=== PATIENT | female | born 1990 | race Caucasian/White ===

== ENCOUNTER 2023-05-16 03:25 | Emergency (ER) | payer OTHER, SELFPAY ==
[2023-05-16] VITALS (17 sets, daily range): BP systolic 77–125; BP diastolic 48–100; PULSE 60–93; RESP 12–31; TEMP 37.1; O2SAT 86–99; BMI 29.3
--- NOTE | 2023-05-16 03:49 | ED.CHESTPAI1 ---
HPI - Chest Pain General Chief Complaint: Chest Pain Stated Complaint: CHEST PAIN Time Seen by Provider: 05/16/23 03:45 Source: patient Mode of arrival: Wheelchair Limitations: no limitations History of Present Illness HPI narrative: patient states she is under increased stress. She takes Adderall, Seroquel and Neurontin daily. Presents complaining of chest pain that started about 1.5 hours ago. No dyspnea,nausea or vomiting MD complaint: Reports chest pain Related Data Home Medications Medication Instructions Recorded Confirmed dextroamphetamine-amphetamine 30 05/16/23 mg tablet gabapentin 800 mg tablet mg 05/16/23 Allergies Allergy/AdvReac Type Severity Reaction Status Date / Time acetaminophen [From Tylenol] Allergy Mild Rash Verified 05/16/23 03:32 haloperidol [From Haldol] Allergy Unknown Verified 05/16/23 03:32 Review of Systems ROS Status of ROS 10 or more systems reviewed and unremarkable except as noted in history and below PFSH PFS Social History Smoking status: Current every day smoker Exam Constitutional Vital Signs, click to edit/add: Last Vital Signs Temp 98.8 F 05/16/23 03:28 Pulse 60 05/16/23 03:28 Resp 18 05/16/23 03:28 BP 125/100 H 05/16/23 03:28 Pulse Ox 98 05/16/23 03:28 O2 Del Method Room Air 05/16/23 03:28 Common normals: no apparent distress, average body habitus, oriented x3, no limitations, healthy appearing, alert and well nourished General appearance: anxious Eye Common normals: EOMs intact bilaterally and conjunctivae normal Chest Common normals: inspection of chest normal and palpation of chest normal Respiratory Common normals: normal respiratory effort, no retractions, no use of accessory muscles and clear to auscultation bilaterally GI Common normals: Normal to inspection, nondistended, normoactive bowel sounds present, soft to palpation and non-tender Extremity Common normals: full ROM Other: partial amputation right foot Neuro Common normals: oriented x3, CN's II-XII intact bilaterally, moves all extremities, no focal motor deficits and no sensory deficits noted Psych Mood and affect: anxious Course Vital Signs Vital signs: Vital Signs Temperature 98.8 F 05/16/23 03:28 Pulse Rate 60 05/16/23 03:28 Respiratory Rate 18 05/16/23 03:28 Blood Pressure 125/100 H 05/16/23 03:28 Pulse Oximetry 98 05/16/23 03:28 Oxygen Delivery Method Room Air 05/16/23 03:28 Temperature 98.8 F 05/16/23 03:28 Pulse Rate 60 05/16/23 03:28 Respiratory Rate 18 05/16/23 03:28 Blood Pressure 125/100 H 05/16/23 03:28 Pulse Oximetry 98 05/16/23 03:28 Oxygen Delivery Method Room Air 05/16/23 03:28 MDM - Chest Pain MDM Narrative Medical decision making narrative: patient presents anxious complaining of chest pain. Required Ativan to get her to calm down. EKG with poor R wave progression precordial leads but otherwise normal. Troponin not detectable. Urine drug screen positive for amphetamines. Patient is now resting comfortably and will be discharged to follow up with her family. cxray is clear. Discharged in stable condition Lab Data Labs: Lab Results 05/16/23 05/16/23 05/16/23 Range/Units 03:35 03:38 04:10 WBC 7.4 (4.0-11.0) 10^3/uL RBC 4.10 L (4.20-5.40) 10^6/uL Hgb 13.1 (12.0-16.0) g/dL Hct 38.6 (36.0-48.0) % MCV 94.1 (81.0-99.0) fL MCH 32.0 (26.7-34.0) pg MCHC 33.9 (29.9-35.2) g/dL RDW 12.6 (11.0-15.0) % Plt Count 223 (150-450) 10^3/uL MPV 10.2 (9.5-13.5) fL Neut % (Auto) 55.6 (43.0-75.0) % Lymph % (Auto) 32.9 (20.5-60.0) % [place] % (Auto) 6.4 (1.7-12.0) % Eos % (Auto) 4.4 (0.9-7.0) % Baso % (Auto) 0.4 (0.2-2.0) % Neut # (Auto) 4.1 (1.4-6.5) 10^3/uL Lymph # (Auto) 2.4 (1.2-3.8) 10^3/uL [place] # (Auto) 0.5 (0.3-0.8) 10^3/uL Eos # (Auto) 0.3 (0.0-0.7) 10^3/uL Baso # (Auto) 0.0 (0.0-0.1) 10^3/uL Abs Immat Gran (auto) 0.02 (0.00-0.03) 10^3/uL Imm/Tot Granulo (auto) 0.3 (0.0-0.5) % Sodium 141 (136-145) mmol/L Potassium 3.9 (3.5-5.1) mmol/L Chloride 107 (98-107) mmol/L Carbon Dioxide 28.6 (21.0-32.0) mmol/L Anion Gap 9.3 BUN 18.0 (7.0-18.0) mg/dL Creatinine 0.66 (0.55-1.02) mg/dL Est GFR ( Amer) >60 (>=60) Est GFR (Non-Af Amer) >60 (>=60) BUN/Creatinine Ratio 27.3 Glucose 97 (74-106) mg/dL Calcium 9.0 (8.5-10.1) mg/dL Troponin I High Sens <4.0 L (4.0-51.3) pg/mL Urine Opiates Screen Negative (NEGATIVE) Ur Buprenorphine Scrn Negative (NEGATIVE) Ur Oxycodone Screen Negative (NEGATIVE) Urine Methadone Screen Negative (NEGATIVE) Ur Propoxyphene Screen Negative (NEGATIVE) Ur Barbiturates Screen Negative (NEGATIVE) U Tricyclic Antidepress Negative (NEGATIVE) Ur Phencyclidine Scrn Negative (NEGATIVE) Ur Amphetamines Screen Positive A (NEGATIVE) U Methamphetamines Scrn Negative (NEGATIVE) U Benzodiazepines Scrn Negative (NEGATIVE) Urine Cocaine Screen Negative (NEGATIVE) U Cannabinoids Screen Negative (NEGATIVE) Streptococcus Screen Negative Discharge Plan Discharge Chief Complaint: Chest Pain Clinical Impression: Anxiety Patient Disposition: Home, Self-Care Prescriptions / Home Meds: No Action dextroamphetamine-amphetamine 30 mg tablet gabapentin 800 mg tablet Instructions: Anxiety (ED) Additional Instructions: follow up with your doctor in a couple of days Stand Alone Forms: Portal Instructions Referrals: Physician,Non-Staff, MD [Primary Care Provider] - 1 week
--- NOTE | 2023-05-16 03:52 | XR_ITS ---
The [address] [address] Patient Name: JASON ALVARADO MRN: [id number] date: 1990 Sex: F Assigned Patient Location: ER Current Patient Location: ER Accession/Order Number: [id number] Exam Date: 05/16/2023 04:07 Report Date: 05/16/2023 04:42 At the request of: JOSE ROBERTO KAUFMAN Procedure: XR chest 1V EXAM: XR chest 1V HISTORY: Chest pain radiating into the back and right arm for 1.5 hours. COMPARISON: None. TECHNIQUE: Single frontal view of the chest performed. FINDINGS: The trachea is midline. The heart size is normal. The cardiomediastinal silhouette and hilar shadows are normal. The lung volumes are normal. The lung hernandez are clear. There is no pneumothorax or osseous abnormality. XR/XR chest 1V IMPRESSION: Unremarkable single frontal view of the chest. Electronically authenticated by: VÍCTOR ROCK Date: 05/16/2023 04:42
--- NOTE | 2023-05-16 03:52 | ECG_ITS ---
The [facility] Test Date: 2023-05-16 Pat Name: JASON ALVARADO Department: Room: - Gender: Female Information Systems Specialist: : 1990 Requested By: [id number] Order Number: [id number] Reading MD: JUAN NGUYỄN Measurements Intervals [place] Rate: 86 P: 62 NE: 176 QRS: 56 QRSD: 72 T: 55 QT: 352 QTc: 396 Interpretive Statements 1100 Sinus rhythm 9110 normal ECG No previous ECG available for comparison Electronically Signed On 05-16-2023 18:16:14 EDT by JUAN NGUYỄN
[2023-05-16 04:00] LABS: Basophils Percent Auto 0.4 % (0.2-2.0); Eosinophils Absolute Auto 0.3 10^3/uL (0.0-0.7); Eosinophils Percent Auto 4.4 % (0.9-7.0); Hematocrit 38.6 % (36.0-48.0); Hemoglobin 13.1 g/dL (12.0-16.0); Immature Granulocytes Abs Auto 0.02 10^3/uL (0.00-0.03); Immature Granulocytes Pct Auto 0.3 % (0.0-0.5); Lymphocytes Absolute Auto 2.4 10^3/uL (1.2-3.8); Lymphocytes Percent Auto 32.9 % (20.5-60.0); Mean Corpuscular HGB Conc 33.9 g/dL (29.9-35.2); Mean Corpuscular Volume 94.1 fL (81.0-99.0); Mean Platelet Volume 10.2 fL (9.5-13.5); Monocytes Absolute Auto 0.5 10^3/uL (0.3-0.8); Monocytes Percent Auto 6.4 % (1.7-12.0); Neutrophils Absolute Auto 4.1 10^3/uL (1.4-6.5); Neutrophils Percent Auto 55.6 % (43.0-75.0); Platelet Count 223 10^3/uL (150-450); Red Cell Distribution Width 12.6 % (11.0-15.0); White Blood Count 7.4 10^3/uL (4.0-11.0)
[2023-05-16 04:13] LABS: Anion Gap 9.3; BUN Creatinine Ratio 27.3; Carbon Dioxide 28.6 mmol/L (21.0-32.0); Chloride 107 mmol/L (98-107); Estimated GFR (African America >60 (>=60); Estimated GFR (Non-African Ame >60 (>=60); Glucose 97 mg/dL (74-106); Potassium 3.9 mmol/L (3.5-5.1); Sodium 141 mmol/L (136-145); Troponin I High Sensitivity <4.0 pg/mL (4.0-51.3)
--- NOTE | 2023-05-16 04:21 | PC.NURSE ---
Patient presented to the ED with complaint of chest pain that radiated to her right arm and back. She then stated that it felt like her throat was swelling closed. Airway was visually inspected and was patent, spo2 was 100% and patient continued speaking without difficulty. She then said that her throat was painful along with her right ear. She thought her right hand was moving strangely, but these movements were not observable by this RN. Patient also repeating that she got chemical mcgrath while she was in [place] 3 months ago from a redbull that fizzed when she opened it . She states that she was seen by hospital in [place] and they would not believe her, then she said that she had called [address] [place] [address] to go to [facility], but they refused to see her because she did not have an ID. She said that she thinks there is spiritual warfare happening in her body and she is frustrated that no one has been able to find it or believe her about it. She begs to not be locked up in the [facility] like last time . Dr Palomino aware of all of these statements
[2023-05-16 04:34] LABS: Amphetamine Screen Urine POSITIVE (NEGATIVE); Barbiturates Screen Urine NEGATIVE (NEGATIVE); Benzodiazepines Screen Urine NEGATIVE (NEGATIVE); Cannabinoid Screen Urine NEGATIVE (NEGATIVE); Cocaine Screen Urine NEGATIVE (NEGATIVE); Methadone Screen Urine NEGATIVE (NEGATIVE); Methamphetamines Screen Urine NEGATIVE (NEGATIVE); Opiate Screen Urine NEGATIVE (NEGATIVE); Oxycodone Screen Urine NEGATIVE (NEGATIVE); Phencyclidine Screen Urine NEGATIVE (NEGATIVE); Tricyclic Antidepressant Urine NEGATIVE (NEGATIVE)
[2023-05-16 04:35] LABS: Buprenorphine Screen Urine NEGATIVE (NEGATIVE)
[2023-05-16 04:57] LABS: Internal Control Within Normal Limits; Strep A Antigen Screen Negative
[2023-05-16] MEDS: IBUPROFEN 600 MG TABLET PO (04:57)
[2023-05-16] MEDS: LORAZEPAM 2 MG/ML 1 ML VIAL 1 MG IV (05:11)
== END 2023-05-16 08:30 | disposition home or self-care (01) ==
PROVIDERS: Emergency Provider Internal Medicine
DX: F41.9 Anxiety disorder, unspecified (principal); F17.210 Nicotine dependence, cigarettes, uncomplicated; Z79.899 Other long term (current) drug therapy
CPT/HCPCS: 36415; 71045; 80048; 80307; 84484; 85025; 87070; 87880; 93005; 96374; 99285

== ENCOUNTER 2023-05-31 18:50 | Emergency (ER) | payer OTHER, SELFPAY ==
[2023-05-31 18:53] VITALS: BP 116/68; PULSE 84; RESP 18; TEMP 36.8; O2SAT 98; BMI 26.7
== END 2023-05-31 19:38 | disposition left against medical advice (07) ==
PROVIDERS: Emergency Provider Internal Medicine
DX: Z53.21 Procedure and treatment not carried out due to patient leaving prior to being seen by health care provider (principal)